=== PATIENT | female | born 1995 | race Caucasian/White ===

== ENCOUNTER 2020-10-15 06:00 | Inpatient (IN) | payer MEDICAID, SELFPAY ==
[~2020-10-15] VITALS: Ht 157.5 cm; Wt 81.6 kg
[2020-10-15] MEDS ORDERED: OXYTOCIN/0.9 % SODIUM CHLORIDE 0 ML IV ONE (06:33)
[2020-10-15] MEDS ORDERED: OXYTOCIN/0.9 % SODIUM CHLORIDE 1,000 ML IV SCH (06:33)
[2020-10-15] MEDS ORDERED: LANOLIN 7 GM OINT. TP PRN (07:00)
[2020-10-15] MEDS ORDERED: METHYLERGONOVINE MALEATE 0.2 MG TABLET PO PRN (07:00)
[2020-10-15] MEDS ORDERED: DOCUSATE SODIUM 100 MG CAPSULE PO PRN (07:00)
[2020-10-15] MEDS ORDERED: DERMOPLAST SPRAY TP PRN (07:00)
[2020-10-15] MEDS ORDERED: SENNOSIDES/DOCUSATE SODIUM 1 TAB TABLET(SENOKOT-S) PO PRN (07:00)
[2020-10-15] MEDS ORDERED: ANUSOL 1 EA SUPP.RECT (PREPARATION H) RC PRN (07:00)
[2020-10-15] MEDS ORDERED: OXYCODONE/ACETAMINOPHEN 5-325 TABLET PO PRN ×2 (07:00)
[2020-10-15] MEDS ORDERED: WITCH HAZEL LEAF 1 MED.PAD MED.PAD TP PRN (07:00)
[2020-10-15] MEDS ORDERED: METHYLERGONOVINE MALEATE 0.2 MG/ML AMP ONE (07:01)
[2020-10-15] MEDS ORDERED: METHYLERGONOVINE MALEATE 0.2 MG/ML AMP IM ONE (07:01)
[2020-10-15] MEDS ORDERED: LR 1,000 ML IV SCH (09:45)
[2020-10-15 10:35] LABS: BASOPHILS # (AUTO) 0.1 K/uL (0.0-0.2); BASOPHILS % (AUTO) 0.4 % (0.0-2.0); EOSINOPHILS % (AUTO) 0.1 % (0.0-4.0); HEMATOCRIT 37.5 % (36-48); HEMOGLOBIN 12.5 g/dL (12.0-16.0); LYMPHOCYTES % (AUTO) 6.5 % (20.5-51.5); MEAN CORPUSCULAR HEMOGLOBIN 29 pg (27-31); MEAN CORPUSCULAR HGB CONC 34 % (32-36); MEAN CORPUSCULAR VOLUME 86 fL (79.0-98.0); MONOCYTES # (AUTO) 0.9 K/uL (0.0-1.0); MONOCYTES % (AUTO) 5.6 % (1.7-9.3); NEUTROPHILS # (AUTO) 13.8 K/uL (1.8-7.7); NEUTROPHILS % (AUTO) 87.4 % (40.0-70.0); PLATELET COUNT (AUTO) 209 K/uL (130-430); RED BLOOD CELL COUNT(AUTO) 4.34 MIL/uL (4.2-6.2); WHITE BLOOD COUNT (AUTO) 15.8 K/uL (4.8-10.8)
[2020-10-15] MEDS: IBUPROFEN 600 MG TABLET PO PRN ×2 (12:13→17:55)
[2020-10-15] MEDS ORDERED: FLU VACC QS2020-21 (6 mos & up) 0.5 ML/SYRINGE I.M. PRN (19:00)
[2020-10-15 19:02] VITALS: BP_SYST 123
[2020-10-15] MEDS ORDERED: TEMAZEPAM 15 MG CAPSULE PO PRN (21:00)
[2020-10-16] MEDS: IBUPROFEN 600 MG TABLET PO PRN ×2 (00:24→05:55)
[2020-10-16 07:39] LABS: HEMATOCRIT 34.7 % (36-48); HEMOGLOBIN 11.6 g/dL (12.0-16.0)
[2020-10-16] MEDS ORDERED: DIPH-TET-PERTUS Vaccine 0.5 ML VIAL (ADACEL) I.M. ONE (10:00)
== END 2020-10-16 11:40 | disposition home or self-care (01) | DRG 560 ==
LOC: SPU 06:00 → OBSVTOIN 06:00
PROVIDERS: ADMIT Obstetrics & Gynecology; ATTEND Obstetrics & Gynecology
PROC: 10E0XZZ Delivery of Products of Conception, External Approach (ICD-10-PCS; principal; 2020-10-15)
DX: O77.0 Labor and delivery complicated by meconium in amniotic fluid (principal); O48.0 Post-term pregnancy; Z20.828 Contact with and (suspected) exposure to other viral communicable diseases; Z3A.40 40 weeks gestation of pregnancy; Z37.0 Single live birth; R71.0 Precipitous drop in hematocrit
CPT/HCPCS: 36415; 85018-TC; 85025; 86592; 86886; 86900; 86901; 90715; J2210; J2590